=== PATIENT | male | born 1965 | race African-American/Black ===

== ENCOUNTER 2018-10-17 13:20 | Outpatient (CLI) | payer OTHER ==
--- NOTE | 2018-10-17 13:34 | RAD ---
FChest 2 views HISTORY: Disability evaluation. FINDINGS: No comparison. Cardiac silhouette and pulmonary vasculature are unremarkable. Mediastinum i s midline. Lungs are slightly hyperinflated. No confluent airspace consolidation, pneumothorax, or pl eural fluid. Degenerative changes of each shoulder. IMPRESSION: Mild pulmonary hyperinflation. No active cardiopulmonary abnormalities are demonstrated.
== END 2018-10-17 13:21 | disposition home or self-care (01) ==
LOC: BICRAD 13:20
PROVIDERS: ATTEND Psychiatry & Neurology Psychiatry
DX: Z02.71 Encounter for disability determination (principal); J98.4 Other disorders of lung
CPT/HCPCS: 71046